=== PATIENT | female | born 1995 | race American Indian/Alaskan Native ===

== ENCOUNTER 2022-12-07 09:00 | Day surgery (SDC) | payer OTHER ==
[~2022-12-07 09:00] MED LIST: Albuterol 0.083% 2.5 MG/3 ML Neb Soln NEB PRN; HYDROmorphone 1 MG/ML Syringe IVPUSH PRN; Lactated Ringers 1,000 ML IV SCH; Metoclopramide 10 MG/2 ML SDV IVPUSH PRN; Morphine 2 MG/ML SYRINGE IVPUSH PRN; Naloxone 0.4 MG/ML SDV IVPUSH PRN; Ondansetron 4 MG/2 ML SDV IVPUSH PRN; Ropivacaine 0.5% 5 MG/ML 30 ML SDV ONE; fentaNYL 50 MCG/ML SDV IVPUSH PRN
[2022-12-07] MEDS ORDERED: Scopolamine 1.5 MG Transdermal Patch TOP ONE (09:30)
[2022-12-07 10:15] LABS: CARBON DIOXIDE,CO2 23.8 mmol/L (21.0-32.0); POTASSIUM,K 4.1 mmol/L (3.5-5.1)
[2022-12-07] MEDS ORDERED: fentaNYL 250 MCG/5 ML SDV ONE ×2 (10:23→11:12)
[2022-12-07] MEDS ORDERED: Propofol 200 MG/20 ML SDV ONE ×4 (10:23→13:20)
[2022-12-07] MEDS ORDERED: propofoL 100 ML ONE (10:24)
[2022-12-07] MEDS ORDERED: fentaNYL 100 MCG/2 ML SDV ONE ×2 (10:28→11:48)
[2022-12-07] MEDS ORDERED: Ketorolac 30 MG/ML SDV ONE ×2 (10:30→13:41)
[2022-12-07] MEDS ORDERED: Ondansetron 4 MG/2 ML SDV ONE ×2 (10:30→13:30)
[2022-12-07] MEDS ORDERED: Rocuronium Bromide 50 MG/5 ML Syringe ONE ×2 (10:30→12:07)
[2022-12-07] MEDS ORDERED: Dexmedetomidine 200 MCG/2 ML SDV ONE (10:30)
[2022-12-07] MEDS ORDERED: Lidocaine 2% 5 ML SDV ONE (10:30)
[2022-12-07] MEDS ORDERED: Dexamethasone 4 MG/ML 5 ML MDV ONE (10:30)
[2022-12-07] MEDS ORDERED: Methylene Blue 50 MG/10 ML Ampule ONE (10:46)
[2022-12-07] MEDS ORDERED: Bupivacaine 0.25% 30 ML SDV ONE (10:47)
[2022-12-07] MEDS ORDERED: ceFAZolin 2 GM Vial ONE (11:25)
[2022-12-07] MEDS ORDERED: HYDROmorphone 2 MG/ML Syringe ONE (12:34)
[2022-12-07] MEDS ORDERED: Fluorescein 5 ML Vial ONE (13:01)
[2022-12-07] MEDS ORDERED: Famotidine 20 MG/2 ML SDV ONE (13:19)
[2022-12-07] MEDS ORDERED: Sugammadex Sodium 200 MG/2 ML VIAL ONE (13:23)
[2022-12-07] MEDS ORDERED: Acetaminophen/oxyCODONE 325-5 MG Tab PO PRN ×2 (13:36)
[2022-12-07] MEDS ORDERED: Ketorolac 30 MG/ML SDV IVPUSH PRN (13:36)
[2022-12-07] MEDS ORDERED: Ondansetron 4 MG/2 ML SDV IVPUSH PRN (13:36)
[2022-12-07] MEDS ORDERED: Morphine 4 MG/ML Syringe IVPUSH PRN (13:36)
[2022-12-07] MEDS ORDERED: Promethazine 25 MG/ML SDV IM PRN (13:36)
[2022-12-07] MEDS ORDERED: ePHEDrine 50 MG/ML SDV ONE (13:41)
[2022-12-07] MEDS ORDERED: Glycopyrrolate 0.2 MG/ML SDV ONE (13:41)
[2022-12-08 06:30] LABS: CARBON DIOXIDE,CO2 22.5 mmol/L (21.0-32.0)
== END 2022-12-08 10:45 | disposition home or self-care (01) ==
LOC: MW.SDS 09:00 → MW.MS 13:36 → MW.SDS 12-08 10:45
PROVIDERS: ATTEND Obstetrics & Gynecology
DX: D28.2 Benign neoplasm of uterine tubes and ligaments (principal); N80.00 Endometriosis of the uterus, unspecified; E66.01 Morbid (severe) obesity due to excess calories; D64.9 Anemia, unspecified; F41.9 Anxiety disorder, unspecified; J40 Bronchitis, not specified as acute or chronic; Z68.42 Body mass index [BMI] 45.0-49.9, adult; Z79.899 Other long term (current) drug therapy; Z98.890 Other specified postprocedural states; Z88.1 Allergy status to other antibiotic agents; Z20.822 Contact with and (suspected) exposure to COVID-19
CPT/HCPCS: 36415; 58552; 80053; 81025; 85025; 85027; 86850; 86900; 86901; 87635; A9270; J0131; J0690; J1100; J1170; J1885; J2704; J2795; J3010; J3490; J7030; J7120; 00944; 64488; J2405; U0002